=== PATIENT | female | born 1955 | race Caucasian/White ===

== ENCOUNTER 2018-02-07 04:21 | Outpatient (CLI) | payer MEDICARE, MEDICAID ==
[~2018-02-07 04:21] MED LIST: FAMO40TA73 PO; IBUP-1984 PO; METF500T PO; ONDA4TAB6 PO; VITC500T PO; WEL75T PO
== END 2018-02-07 23:59 | disposition home or self-care (01) ==
LOC: DIABETIC 04:21
PROVIDERS: ATTEND Surgery
DX: E66.01 Morbid (severe) obesity due to excess calories (principal); E11.9 Type 2 diabetes mellitus without complications; G47.30 Sleep apnea, unspecified; F32.9 Major depressive disorder, single episode, unspecified
CPT/HCPCS: 97802

== ENCOUNTER 2018-03-07 01:47 | Outpatient (CLI) | payer MEDICARE, MEDICAID | END 2018-03-07 23:59 | disposition home or self-care (01) | LOC: DIABETIC 01:47 | PROVIDERS: ATTEND Surgery | DX: E11.9 Type 2 diabetes mellitus without complications (principal); E66.01 Morbid (severe) obesity due to excess calories; G47.30 Sleep apnea, unspecified; J45.909 Unspecified asthma, uncomplicated; Z79.899 Other long term (current) drug therapy | CPT/HCPCS: 97802 ==

== ENCOUNTER 2018-05-08 00:27 | Outpatient (CLI) | payer MEDICARE, MEDICAID | END 2018-05-08 23:59 | disposition home or self-care (01) | LOC: DIABETIC 00:27 | PROVIDERS: ATTEND Surgery | DX: E11.9 Type 2 diabetes mellitus without complications (principal) ==